=== PATIENT | male | born 1995 | race Caucasian/White ===

== ENCOUNTER 2019-02-10 08:49 | Emergency (ER) | payer MEDICAID ==
[~2019-02-10] VITALS: Ht 175.3 cm; Wt 81.8 kg
[2019-02-10 11:08] VITALS: BP 140/71
== END 2019-02-10 11:08 | disposition home or self-care (01) ==
LOC: ED 08:49
DX: M54.9 Dorsalgia, unspecified (principal); Z79.899 Other long term (current) drug therapy
CPT/HCPCS: J1100; J1885